=== PATIENT | female | born 1950 | race Caucasian/White ===

== ENCOUNTER 2017-01-25 16:46 | Emergency (ER) | payer MEDICARE, OTHER ==
[~2017-01-25] VITALS: Ht 172.7 cm; Wt 104.8 kg
[2017-01-25] MEDS ORDERED: REMERON45 M1 PO (16:58)
[2017-01-25] MEDS ORDERED: CYMBALTA60 MG PO (16:58)
[2017-01-25] MEDS ORDERED: RITALIN5 MG PO (17:00)
[2017-01-25] MEDS ORDERED: HYDROCHLOROTH12.5 M1 PO (19:14)
--- NOTE | 2017-01-26 20:38 | EKG ---
[facility] [address] [facility] [place] [address] Signed Normal sinus rhythm Normal ECG No previous ECGs available Confirmed by ANDERSON SANCHEZ MD ([id number]) on 01/26/2017 8:38:39 PM Electronically Signed By: ANDERSON SANCHEZ MD 01/26/17 2038 PATIENT NAME: ARIANA LAWLER MARCELL Electrocardiogram DATE OF : 54 PHYSICIAN: ANDERSON SANCHEZ MD REPORT #: [id number] REPORT IS CONFIDENTIAL AND NOT TO BE RELEASED WITHOUT AUTHORIZATION
== END 2017-01-25 19:25 | disposition home or self-care (01) ==
LOC: ED 16:46
DX: I10 Essential (primary) hypertension (principal); F84.0 Autistic disorder; Z79.01 Long term (current) use of anticoagulants; Z79.899 Other long term (current) drug therapy; Z98.890 Other specified postprocedural states
CPT/HCPCS: 80053; 81001; 82550; 82553; 83874; 84484; 85025; 85610; 85730; 93005; 93010; 96374; 99284

== ENCOUNTER 2018-05-07 18:20 | Emergency (ER) | payer MEDICARE, OTHER ==
[~2018-05-07] VITALS: Ht 172.7 cm; Wt 104.8 kg
[~2018-05-07 18:20] MED LIST: CYMBALTA60 MG PO; HYDROCHLOROTH12.5 M1 PO; REMERON45 M1 PO; RITALIN5 MG PO
--- OUTSIDE RECORDS SUMMARY | 2018-05-07 18:24 | XMS ---
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 Mert has no Care Guidelines for this patient. Rk VISIT COUNT (12 MO.) 1 ANKUSH Khan TOTAL 1 NOTE: Visits indicate total known visits. ED/UCC VISIT TRACKING (12 MO.) 05/07/2018 18:20 ANKUSH Campbell [place] TYPE: Emergency COMPLAINT: - DIZZY,HIGH BP INPATIENT VISIT TRACKING (12 MO.) No inpatient visits to display in this time frame [email or web address]
[2018-05-07] MEDS ORDERED: LISINOPRIL10 MG PO (20:02)
--- NOTE | 2018-05-08 20:14 | EKG ---
[facility] [address] [facility] [place], [place] [address] Signed Normal sinus rhythm Possible Left atrial enlargement Borderline ECG When compared with ECG of 25-JAN-2017 17:15, No significant change was found Confirmed by DEDRICK OLIVEIRA DO ([id number]) on 05/08/2018 8:14:14 PM Electronically Signed By: DEDRICK OLIVEIRA DO 05/08/182013 PATIENT NAME: ARIANA LAWLER MARCELL Electrocardiogram DATE OF : 54 PHYSICIAN: DEDRICK OLIVEIRA DO REPORT #: [id number] REPORT IS CONFIDENTIAL AND NOT TO BE RELEASED WITHOUT AUTHORIZATION
== END 2018-05-07 20:10 | disposition home or self-care (01) ==
LOC: ED 18:20
DX: I10 Essential (primary) hypertension (principal); F17.200 Nicotine dependence, unspecified, uncomplicated
CPT/HCPCS: 71046; 80053; 83735; 84484; 85025; 85379; 85610; 85730; 93005; 93010; 96374; 99284; J2405

== ENCOUNTER 2019-08-23 05:30 | Observation (INO) | payer MEDICARE, OTHER ==
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
[~2019-08-23] VITALS: Ht 172.7 cm; Wt 109.3 kg
[~2019-08-23 05:30] MED LIST changes: +HYDROCHLOROTHIA25 MG PO; +LIPITOR20 MG PO; +LISINOPRIL10 MG PO; +LISINOPRIL40 MG PO; +MOBIC15 MG PO; +NORVASC5 MG PO
--- NOTE | 2019-08-23 10:52 | NUR ---
08/23/19 1052 Domenica Ngo 1009 PT ARRIVED IN PACU WIDE AWAKE WITH NO C/O'S. MOVING FEET. BUNNY BOLSTER IN PLACE. 1015 SIPPING ON ICE WATER. 1025 XRAY OF L HIP DONE. SITTING UP IN BED SIPPING ON COFFEE. ICE TO L HIP. 1040 GLASSES RETURNED TO PT. 1045 TO ROOM 122. BED PLUGGED IN AND CALL LITE IN PLACE. PT TEXTING ON CELL PHONE. NO C/O'S.
--- NOTE | 2019-08-23 10:54 | NUR ---
PT TO UNIT. PT AWAKE, ALERT AND ORIENTED X4. PT DENIES PAIN AT THIS TIME. LEFT HIP DRESSING IS CDI; ICE OVER INCISION. CMS INTACT. ABDUCTOR PILLOW INTACT. SCD'S INTACT. PT REPORTS FULL SENSATION TO YULI LOWER EXT. VS STABLE AT THIS TIME. PT DENIES NEED TO VOID. PERSONAL SUPPLIES AND CALL LIGHT WITHIN REACH. NO NEEDS AT THIS TIME. CALL LIGHT WITHIN REACH.
[2019-08-23] MEDS ORDERED: DULOXETINE HCL30 MG PO (11:56)
--- NOTE | 2019-08-23 12:04 | NUR ---
PT SITTING UP IN BED, A&OX4. PT ON RA, RESP EVEN AND NON LABORED. LEFT HIP DRESSING IS CDI. PT AMBULATED TO THE BR WITH STANDBY ASSIST WITH WALKER; TOLERATED WELL. VS STABLE AT THIS TIME. PT EATING LUNCH. PT REPORTS PAIN LEVEL OF 0/10 TO LEFT HIP. PT WANTS TO GO HOME SOON. BED ALARM INACT. SPINAL RESOLVED. PERSONAL SUPPLIES AND CALL LIGHT WITHIN REACH. NO NEEDS AT THIS TIME.
--- NOTE | 2019-08-23 12:04 | NUR ---
MED REC COMPLETE
[2019-08-23] MEDS ORDERED: DILAUDID4 MG PO ×3 (12:22→14:11)
[2019-08-23] MEDS ORDERED: NORCO 10-325 T1 EACH PO ×3 (12:23→14:11)
[2019-08-23] MEDS ORDERED: ONDANSETRON ODT4 MG SL (12:24)
[2019-08-23] MEDS ORDERED: XARELTO10 MG PO ×2 (12:24→13:01)
[2019-08-23] MEDS ORDERED: TYLENOL EXTRA500 MG PO (12:28)
--- NOTE | 2019-08-23 13:04 | NUR ---
PT SITTING UP, A&OX4. PT REPORTS 0/10 PAIN IN LEFT HIP. INCISION TO LEFT HIP CDI, ICE OVER INCISION. PT REPORTS FULL SENSATION TO LLE. CMS INTACT TO BILAT LOWER EXT. PERSONAL SUPPLIES AND CALL LIGHT WITHIN REACH. VS STABLE. NO NEEDS AT THIS TIME.
--- NOTE | 2019-08-23 13:59 | NUR ---
SPOKE WITH DR KING REGARDING DISCHARGE. HE SAID HE WAS GOOD WITH HER GOING. SPOKE WITH PT REGARDING SAFE DISCHARGE PLANS AND SHE STATED THAT HER HOME IS SET UP FOR HANDICAP ACCESSIBLE AND SHE HAS 24 HOUR CAREGIVERS.
--- NOTE | 2019-08-23 14:06 | NUR ---
PT SITTING UP IN BED, A&OX4. PT DENIES PAIN. PT HAS NO NEEDS AT THIS TIME. PT REQUESTING TO GO HOME. PERSONAL SUPPLIES AND CALL LIGHT WITHIN REACH. NO NEEDS AT THIS TIME.
--- NOTE | 2019-08-25 07:21 | OR ---
[facility] [address] [place], [place] [address] Signed DATE OF OPERATION: 08/23/2019 SURGEON: Palomo King MD PREOPERATIVE DIAGNOSIS: End-stage osteoarthritis, left hip. POSTOPERATIVE DIAGNOSIS: End-stage osteoarthritis, left hip. PROCEDURE: Left total hip arthroplasty. IMPLANTS: [place] cup, size 7 Beauregard stem, standard offset with a +5 36 mm Louin-chrome head. ANESTHESIA: Spinal with some sedation. SPECIMENS AND COMPLICATIONS: There were no specimens or complications. BLOOD LOSS: About 650 mL. WHAT WAS DONE: The patient was taken to the operating room. After anesthesia was induced and airway secured, the patient was positioned, prepped and draped in a routine sterile fashion. All the bony prominences were padded and a time-out was taken. A slightly curvilinear lateral incision was made through skin and subcutaneous tissue. Hemostasis was achieved with electrocautery. The fascia was incised in line with the skin incision and the tensor was bluntly split with the tips of the gloved fingers. We then released the anterior 3rd of the gluteus and retracted it medially using a Charnley retractor. We then opened up the anterior capsule and did anterior and superior capsulectomy. We were then able to dislocate the hip anteriorly. The femoral head and neck resection were accomplished with an oscillating saw using the Beauregard guide. We removed the head and neck fragment. We then removed what was left of the labrum around the hip, so we could identify the bony acetabulum. We then sequentially reamed the acetabulum until we hit with 53 mm reamer where we got a very good fit and fill. We put in a trial liner. We are happy again with the alignment, position, and stability, so we impacted a 54 mm Electronically Signed By: PALOMO KING MD 08/25/19 0721 PATIENT NAME: ARIANA LAWLER OPERATIVE REPORT DATE OF : 54 REPORT #: [id number] PHYSICIAN: PALOMO KING MD PCP: FIDELINA PHELPS MD REPORT IS CONFIDENTIAL AND NOT TO BE RELEASED WITHOUT AUTHORIZATION [facility] [address] [place], [place] [address] Signed pinnacle cup. It was secured with two additional screws, even though the press-fit was quite snug. We irrigated it copiously and then impacted neutral 36 liner. We then rotated the proximal femur up into the wound and prepared it using the standard box chisel, canal finder, lateralizer, reamers, and then broaches. Although, we were just about to able to get a size 8 reamer down, the size 8 broach was clearly too large. We therefore impacted the size 7 broach right to the level of the resection. We put on a +1.5 36 ball and relocated the hip with good alignment, good position, and good stability. A single AP x-ray was taken, which showed good alignment and good position, but the lesser trochanter was little higher than it was before resection. We therefore dislocated the hip, removed the trials, and impacted the real size 7 stem. We then placed +5 ball on the head and again, we were happy with the alignment, position, and stability. The wound was copiously irrigated and closed in a standard fashion. Sterile dressings were applied and the patient was awakened in recovery room, and arrived in stable condition. Counts were correct and antibiotic protocols were followed. Palomo King MD WFB/MODL /[id number] Copies: ~ Electronically Signed By: PALOMO KING MD 08/25/19 0721 PATIENT NAME: ARIANA LAWLER MARCELL OPERATIVE REPORT DATE OF : 54 REPORT #: [id number] PHYSICIAN: PALOMO KING MD PCP: FIDELINA PHELPS MD REPORT IS CONFIDENTIAL AND NOT TO BE RELEASED WITHOUT AUTHORIZATION
== END 2019-08-23 14:35 | disposition home or self-care (01) ==
LOC: MS 05:30 → DS 05:30 → DSVR 05:30 → DS 07:36 → MS 07:37 → EDSTATUS 07:45 → MS 10:40 → DSVR 10:40 → MS 14:35
PROVIDERS: ADMIT Orthopaedic Surgery
PROC: 0SRB0JZ Replacement of Left Hip Joint with Synthetic Substitute, Open Approach (ICD-10-PCS; principal; 2019-08-23 07:45)
DX: M16.0 Bilateral primary osteoarthritis of hip (principal); I10 Essential (primary) hypertension; E78.5 Hyperlipidemia, unspecified; F32.1 Major depressive disorder, single episode, moderate; R82.71 Bacteriuria; R06.83 Snoring; Z79.899 Other long term (current) drug therapy; Z79.1 Long term (current) use of non-steroidal anti-inflammatories (NSAID)
CPT/HCPCS: 01214; 73501; 73502; 97110; 97161; C1776; G0378; J0690; J1100; J1885; J2001; J2250; J2274; J2300; J2704; J3475; J7121

== ENCOUNTER 2019-08-29 16:31 | Emergency (ER) | payer MEDICARE, OTHER ==
[~2019-08-29] VITALS: Ht 172.7 cm; Wt 109.3 kg
[~2019-08-29 16:31] MED LIST changes: +DILAUDID4 MG PO; +DULOXETINE HCL30 MG PO; +NORCO 10-325 T1 EACH PO; +ONDANSETRON ODT4 MG SL; +TYLENOL EXTRA500 MG PO; +XARELTO10 MG PO
--- OUTSIDE RECORDS SUMMARY | 2019-08-29 16:36 | XMS ---
PreManage Notification: ARIANA LAWLER Security Certified Pharmacy Tech Events No recent Security Events currently on file CRITERIA MET - Group Notification - [facility] - Has Care Guidelines - PDMP CARE PROVIDERS There are no care providers on record at this time. Mert has no Care Guidelines for this patient. Care History Medical/Surgical 05/10/2018 [facility] - [facility] RECEIVED-ED PHYSICIAN CONSULT- HELP PATIENT WITH FINDING A PCP. - [facility] CALLED PATIENT AND LEFT A VOICEMAIL. - [facility] SENT PATIENT NO PCP LETTER. E.DMustapha VISIT COUNT (12 MO.) 1 [facility] TOTAL 1 NOTE: Visits indicate total known visits. ED/UCC VISIT TRACKING (12 MO.) 08/29/2019 16:32 ANKUSH Campbell [place] TYPE: Emergency COMPLAINT: - SYNCOPE EPISODE INPATIENT VISIT TRACKING (12 MO.) 08/23/2019 07:37 ANKUSH Campbell [place] TYPE: Observation COMPLAINT: - LEFT TOTAL HIP REPLACEMENT DIAGNOSES: - Other prison (current) drug therapy - Bilateral primary osteoarthritis of hip - Snoring - Major depressive disorder, single episode, moderate - half-way (current) use of non-steroidal non-inflam (NSAID) - Unilateral primary osteoarthritis, left hip - Unilateral primary osteoarthritis, left hip - Bacteriuria - Essential (primary) hypertension - Hyperlipidemia, unspecified [email or web address]
[2019-08-29] MEDS ORDERED: CEFUROXIME500 MG PO (18:57)
== END 2019-08-29 20:18 | disposition home or self-care (01) ==
LOC: ED 16:31
DX: K59.00 Constipation, unspecified (principal); N39.0 Urinary tract infection, site not specified; I10 Essential (primary) hypertension; Z87.891 Personal history of nicotine dependence; Z88.5 Allergy status to narcotic agent; Z79.899 Other long term (current) drug therapy
CPT/HCPCS: 80053; 81001; 83605; 85025; 96361; 96374; 99283-25; J2405; J7030

== ENCOUNTER 2022-04-14 12:46 | Day surgery (SDC) | payer MEDICARE ==
[~2022-04-14] VITALS: Ht 172.7 cm; Wt 109.1 kg
[~2022-04-14 12:46] MED LIST changes: +CEFUROXIME500 MG PO
[2022-04-14] MEDS ORDERED: ADDERALL 15 MG15 MG PO (13:10)
--- NOTE | 2022-04-14 15:45 | NUR ---
04/14/22 1545 Domenica Ngo 1534 PT ARRIVED IN PACU AWAKE WITH NO C/O'S. ABD SOFT. ASKING FOR COFFEE. 1544 SITTING UP IN BED SIPPING ON COFFEE.
--- NOTE | 2022-04-15 19:03 | OR ---
[facility] [address] [place], [place] [address] Signed DATE OF OPERATION: 04/14/2022 SURGEON: Digna Pollock MD PREOPERATIVE DIAGNOSIS: Positive Cologuard test, December 2021. POSTOPERATIVE DIAGNOSES: 1. Two small polyps rectosigmoid and rectum (excised). 2. Extensive diverticulosis, left and sigmoid colon. PROCEDURE: Total colonoscopy to cecum with cold morcellation polypectomy x2 and blind biopsy behind the ileocecal valve x1. ANESTHESIA: Intravenous sedation fentanyl 150 mcg and Versed 10 mg. INDICATION: 72-year-old white woman is a patient of Dr. Shelton and underwent Cologuard screening test in December 2021 which was positive. She has had no associated blood per rectum, diarrhea, or constipation and has no prior evaluation by colonoscopy. She has no family history of colon cancer. She was admitted at this time to undergo colonoscopy on the basis of her positive Cologuard test. She understands the risks of bleeding, infection, perforation. FINDINGS: The prep was excellent. Complete colonoscopy was undertaken. Full intubation of the cecum was not afforded, however, good visualization of the ileocecal valve and cecum was noted. Biopsies were taken behind the ileocecal valve as the cecum itself could not be fully intubated though mucosa was withdrawn and appeared normal. There were numerous diverticula of the sigmoid and left colon. There were two small polyps, one in the rectosigmoid, the other in the rectum, there were no other findings of concern. PROCEDURE IN DETAIL: The patient was brought to the endoscopy suite and placed in lateral decubitus position given intravenous sedation to the point of slurred speech and nystagmus. Digital rectal examination was normal. An Olympus video colonoscope was passed in the rectum and manipulated throughout the Electronically Signed By: DIGNA POLLOCK MD 04/15/22 1903 PATIENT NAME: ARIANA LAWLER OPERATIVE REPORT DATE OF : 54 REPORT #: [id number] PHYSICIAN: DIGNA POLLOCK MD PCP: RENETTA SHELTON MD REPORT IS CONFIDENTIAL AND NOT TO BE RELEASED WITHOUT AUTHORIZATION [facility] [address] [place], [place] [address] Signed colon noting numerous diverticula of the sigmoid and left colon. Scope was ultimately passed beyond hepatic flexure. Abdominal wall stabilization was required to more fully advance the scope. Ultimately, the cecum was identified as was the ileocecal valve. Various maneuvers were undertaken including abdominal wall stabilization and so forth to fully intubate the cecum, but was not forthcoming due to patient discomfort and other issues. On that basis, a biopsy forceps was used to elevate the mucosa behind the ileocecal valve and elsewhere. Ultimately, biopsy in the area as well, though there was no evidence of actual polyp. The scope was then withdrawn and examination throughout showed no sign of abnormality into the rectosigmoid where small sessile polyp was noted, this was excised with cold morcellation technique. Most likely this polyp was hyperplastic. Further withdrawal allowed for identification of an obviously adenomatous polyp of the rectum, which was excised with cold morcellation technique as well. Complete excision was undertaken. Retroflexed view showed anal papilla hypertrophy but no other findings of concern. Scope was removed. The patient was taken to the recovery room in good condition. CONCLUDING DIAGNOSIS: Polyps x2. PLAN: Recommend repeat colonoscopy in 5-7 years, sooner if clinically indicated. Recommend also high-fiber diet based on diverticulosis. She will return to the ongoing care of Dr. Shelton. MD JOSE Galaviz/MICHAELL /[id number] cc: Renetta Shelton MD Copies: ~ Electronically Signed By: DIGNA POLLOCK MD 04/15/22 1903 PATIENT NAME: ARIANA LAWLER MARCELL OPERATIVE REPORT DATE OF : 54 REPORT #: [id number] PHYSICIAN: DIGNA POLLOCK MD PCP: RENETTA SHELTON MD REPORT IS CONFIDENTIAL AND NOT TO BE RELEASED WITHOUT AUTHORIZATION
--- NOTE | 2022-04-16 16:22 | PATH ---
[facility] [address] [place], [place] [address] Signed SPECIMEN(S): A CECUM BIOPSY SPECIMEN(S): B RECTOSIGMOID POLYP SPECIMEN(S): C RECTAL POLYP SPECIMEN SOURCE: A. CECUM BIOPSY B. RECTOSIGMOID POLYP C. RECTAL POLYP CLINICAL HISTORY: Initial screening colonoscopy, no family history of colon cancer. + Cologuard 12/2021. Post: Diverticulosis and polyps x 2. FINAL PATHOLOGIC DIAGNOSIS: A. Cecum, biopsies: - Benign colon mucosa. - Negative for acute inflammation, granulomata, and microscopic colitis. B. Rectosigmoid polyp, polypectomy: - Tubular adenoma. - Negative for high-grade dysplasia and malignancy. C. Rectal polyp, polypectomy: - Tubular adenoma. - Negative for high-grade dysplasia and malignancy. DDF:mfr:C2NR MICROSCOPIC EXAMINATION: Histologic sections of all submitted blocks are examined by light microscopy. These findings, together with the gross examination, support the pathologic diagnosis. GROSS DESCRIPTION: Three specimens are received in three containers, labeled "BT ." A. The specimen, labeled "BT #1," is received in formalin and consists of one avitia soft tissue fragment that measures 0.3 cm in greatest dimension. The specimen is entirely submitted in cassette (A1). B. The specimen, labeled "BT #2," is received in formalin and consists of three vaitia soft tissue fragments that measure 0.3 cm in greatest dimension. The specimen is entirely submitted in cassette (B1). C. The specimen, labeled "BT #3," is received in formalin and consists of one PATIENT NAME: ARIANA LAWLER PATHOLOGY DATE OF : 54 REPORT #: [id number] PHYSICIAN: KHRIS RESTREPO PCP: FIDELINA PHELPS MD REPORT IS CONFIDENTIAL AND NOT TO BE RELEASED WITHOUT AUTHORIZATION [facility] [address] [place], [place] [address] Signed avitia soft tissue fragment that measures 0.2 cm in greatest dimension. The specimen is entirely submitted in cassette (C1). KV (under the direct supervision of a pathologist) The Gross Description was prepared using a voice recognition system. The report was reviewed for accuracy; however, sound-alike word errors, addition and/or deletions may occur. If there is any question about this report, please contact Client Services. PERFORMING LABORATORY: The technical component was performed by [facility], [address] [place] [address] (CLIA# [id number]). Professional interpretation was performed by [facility], [facility], [address] [place] [id number] (CLIA#: [id number]) Diagnostician: Ken Chiu DO Pathologist Electronically Signed 04/16/2022 Copies: ~ PATIENT NAME: ARIANA LAWLER PATHOLOGY DATE OF : 54 REPORT #: [id number] PHYSICIAN: [facility] PCP: FIDELINA PHELPS MD REPORT IS CONFIDENTIAL AND NOT TO BE RELEASED WITHOUT AUTHORIZATION
== END 2022-04-14 16:05 | disposition home or self-care (01) ==
LOC: OPS 12:46 → DS 12:51 → OPS 14:00
PROVIDERS: ATTEND Surgery
PROC: 0DBP8ZZ Excision of Rectum, Via Natural or Artificial Opening Endoscopic (ICD-10-PCS; principal; 2022-04-14 14:00)
DX: D12.7 Benign neoplasm of rectosigmoid junction (principal); D12.8 Benign neoplasm of rectum; K57.30 Diverticulosis of large intestine without perforation or abscess without bleeding; I10 Essential (primary) hypertension; Z96.641 Presence of right artificial hip joint
CPT/HCPCS: 88305; 99153; G0500; J0690; J2250; J3010; J7121

== ENCOUNTER 2022-05-05 20:53 | Emergency (ER) | payer MEDICARE ==
[~2022-05-05] VITALS: Ht 172.7 cm; Wt 108.9 kg
[~2022-05-05 20:53] MED LIST changes: +ADDERALL 15 MG15 MG PO
== END 2022-05-05 23:15 | disposition home or self-care (01) ==
LOC: ED 20:53
DX: S80.11XA Contusion of right lower leg, initial encounter (principal); K59.00 Constipation, unspecified; I10 Essential (primary) hypertension; W19.XXXA Unspecified fall, initial encounter; Z87.891 Personal history of nicotine dependence; Z88.5 Allergy status to narcotic agent; Z79.899 Other long term (current) drug therapy
CPT/HCPCS: 99283

== ENCOUNTER 2024-09-23 12:46 | Inpatient (IN) | payer MEDICARE ==
[~2024-09-23] VITALS: Ht 172.7 cm; Wt 105.2 kg
[2024-09-23 13:12] LABS: BASOPHILS 0.3 % (0-2); EOSINOPHILS 0.5 % (0-6); HEMATOCRIT 37.6 % (35.0-50.0); HEMOGLOBIN 13.1 g/dL (12.0-18.0); LYMPHOCYTES 3.1 % (24-44); MCH 30.3 (27-36); MCHC 34.8 g/dl (30-36); MCV 87.1 fl (81-99); MONOCYTES 5.8 % (0-12); NEUTROPHILS 90.3 % (39-80); PLATELET COUNT 223 K/uL (140-440); RBC 4.31 M/ul (4.3-5.7); RDW 13.6 (10.5-15.0)
[2024-09-23] MEDS ORDERED: ACETAMINOPHEN 500 MG TAB PO ONE (13:15)
[2024-09-23] MEDS ORDERED: CEFTRIAXONE SODIUM 2 GM VIAL ONE (13:17)
[2024-09-23 13:30] LABS: LACTIC ACID, BLOOD 1.2 mmol/L (0.4-2.0)
[2024-09-23] MEDS ORDERED: CEFTRIAXONE SODIUM 2 GM in SODIUM CHLORIDE 0.9% 100 ML IV ONE (13:30)
[2024-09-23] MEDS ORDERED: AZITHROMYCIN 500 MG in DEXTROSE 5% 250 ML IV ONE (13:30)
[2024-09-23 13:37] LABS: ALBUMIN 3.7 g/dL (3.4-5.0); ALBUMIN/GLOBULIN RATIO 1.23 (1.1-2.4); ANION GAP 14.3 (7-21); BILIRUBIN, TOTAL 0.5 mg/dL (0.2-1.0); BUN/CREATININE RATIO 12.67 (6.0-28.6); CALCIUM 9.4 mg/dL (8.5-10.1); CREATININE, SERUM 0.71 mg/dL (0.55-1.02); POTASSIUM 3.3 mmol/L (3.5-5.1); PROTEIN, TOTAL 6.7 g/dL (6.4-8.2)
[2024-09-23 13:39] LABS: BILIRUBIN, URINE NEGATIVE (negative); BLOOD/HGB, URINE NEGATIVE (Negative); KETONE, URINE NEGATIVE (Negative); LEUK ESTERASE, URINE NEGATIVE (negative); NITRITE, URINE POSITIVE (negative); PH, URINE 7.5 (5-7)
[2024-09-23 13:42] LABS: INFLUENZA B NAA NEGATIVE (NEGATIVE); RESPIRATORY SYNCYTIAL VIR NAA NEGATIVE (NEGATIVE)
[2024-09-23 13:52] LABS: BACTERIA, URINE 3+ /hpf (negative); CASTS, URINE NONE SEEN \\lpf; COLLECTION TYPE, URINE CATH; CRYSTALS, URINE NONE SEEN (0-1+); EPITHELIAL CELLS, URINE OCCASIONAL /lpf (0-1+); RED BLOOD CELLS, URINE 0-1 /hpf (0-5); REFLEX CULTURE, URINE Yes (No)
[2024-09-23] MEDS ORDERED: SODIUM CHLORIDE 0.9% 1,000 ML IV ONE ×2 (14:00→15:15)
[2024-09-23] MEDS ORDERED: ALBUTEROL/IPRATROPIUM 3 ML NEB ONE (14:06)
[2024-09-23] MEDS ORDERED: ALBUTEROL/IPRATROPIUM 3 ML NEB INH ONE (14:15)
[2024-09-23] MEDS ORDERED: KETOROLAC TROMETHAMINE 15 MG/ML VIAL IV PRN (14:45)
--- NOTE | 2024-09-23 15:00 | NUR ---
PT ARRIVES TO FLOOR IN STRETCHER WITH NIA BEARD. PT TRANSFERRED VIA SLIDE SHEET TO HOSPITAL BED. VS AND WT OBTAINED. THIS RN REMAINS IN ROOM TO COMPLETE ADMISSION.
[2024-09-23 15:13] VITALS: BP 126/48
[2024-09-23] MEDS ORDERED: ALBUTEROL SULFATE 0.083% 3 ML VIAL INH PRN (15:15)
[2024-09-23] MEDS ORDERED: POTASSIUM CHLORIDE 10 MEQ TABCR PO ONE (15:15)
[2024-09-23] MEDS ORDERED: ACETAMINOPHEN 325 MG TAB PO PRN (15:15)
[2024-09-23] MEDS ORDERED: ondansetron HCL 4 MG/2 ML VIAL IV PRN (15:15)
[2024-09-23] MEDS ORDERED: DULOXETINE HCL30 MG PO (15:19)
[2024-09-23] MEDS ORDERED: LION'S MANE PO (15:30)
[2024-09-23] MEDS ORDERED: TURMERIC500 M2 PO (15:31)
[2024-09-23] MEDS ORDERED: MAGOX 400400 MG PO (15:31)
[2024-09-23] MEDS ORDERED: VITAMIN D325 MCG PO (15:31)
[2024-09-23] MEDS ORDERED: IRON325 M1 PO (15:31)
[2024-09-23] MEDS ORDERED: VITAMIN C250 M1 PO (15:32)
[2024-09-23] MEDS ORDERED: DICLOFENAC SODI75 MG PO (15:33)
[2024-09-23] MEDS ORDERED: METHOCARBAMOL750 MG PO (15:33)
--- NOTE | 2024-09-23 15:33 | NUR ---
MED REC COMPLETE
--- NOTE | 2024-09-23 15:46 | NUR ---
UR CLINICAL REVIEW: 2MN VERSALUS, MEETS INPT FOR PNEUMONIA, UTI, HYPONATREMIA CXR POSITIVE FOR PNEUMONIA, HYPOXIC REQUIRING OXYGEN NOT BASELINE, IV ANTIBIOTICS, TREND LABS MEDICARE INPT 09/23/24 @ 3578 ORDER MATCHES REG NO AUTH REQUIRED PER MEDICARE RULES PLAN TO DC TO HOME WHEN MEDICALLY STABLE.
[2024-09-23] MEDS ORDERED: ALBUTEROL/IPRATROPIUM 3 ML NEB INH SCH (16:00)
--- NOTE | 2024-09-23 16:09 | NUR ---
ADMISSION COMPLETE. PT RESTING IN BED WITH HOB ELEVATED, 5LNC IN PLACE, CPOX AT BEDISDE. PTs SPO2 SUSTAINS>90%. PT INITIALLY COMPLAINING OF 10/10 PAIN TO HER R UPPER/MID BACK. PT PREVIOUSLY RECEIVED PRN PAIN MEDICATION IN ED. HEAT PACKS AND REPOSITIONED SUPPLIED. PT REPORTS IMPROVEMENT, HER BACK PAIN HAS DECREASED TO 3/10. LUNG SOUNDS ARE COARSE CRACKLES THROUGHOUT WITH EXPIRATORY WHEEZE THROUGHOUT. TACHYPNIC, RR OF 28, PT REPORTS SOB. PT CAN SPEAK IN COMPLETE SENTENCES ONLY IF THEY ARE SHORT. IV TO L AC AND L WRIST, BOTH FLUSH WNL. FLUID BOLUS INFUSING ORDERED TO L AC. PT REPORTS THAT SHE HAS NOT HAD A BOWEL MOVEMENT IN A FEW DAYS AND SHE IS DUE. BOWEL TONES ARE ACTIVE IN ALL FOUR QUADRANTS, NON-TENDER TO PALPATION. CHRONIC CONSTIPATION D/T IRON SUPPLEMENTATION. PT TOOK MIRALAX BEFORE HOSPITAL THIS MORNING. PT REPORTS SHE HAS "A STICKY VALVE AND MURMUR" DIAGNOSED BY HER PCP LAST YEAR, SHE CANNOT CLARIFY FURTHER. BRIEF WITH PUREWICK IN PLACE, PT REPORTS DRIBBLING AT HOME AND SHE GENERALLY WEARS A PAD "JUST IN CASE I SNEEZE". PTs PURSE IS IN LOCKBOX, PTs DAUGHTER LEAVES AT THIS TIME. RESPIRATORY THERAPY ARRIVES TO WORK ON PT. RT REMAINS WITH PT AT THIS TIME.
--- NOTE | 2024-09-23 16:21 | NUR ---
CAROLYN FROM RESPIRATORY THERAPY UPDATES THIS RN. PT IS NOW ON 6LNC TO MAINTAIN SPO2 OF 90%.
--- NOTE | 2024-09-23 16:45 | NUR ---
MD GIVES VERBAL ORDER FOR EKG, TROPONIN, MEDICATION, AND STAT CT TO RULE OUT PE. ORDERS PLACED.
--- NOTE | 2024-09-23 16:51 | NUR ---
PT REPORTS FEELING INCREASED SOB, CPOX WITH SPO2 OF 88%. OXYMASK PLACED AT 6L, PT CONTINUES TO REPORT INCREASED SOB. PT PLACED BACK ON NC AT 6L. PT HAS BECOME MORE PALE, HER HOB IS ELEVATED HIGH IT GOES WITH HER HEAD PRESSED AGAINST HER PILLOW AND STARING AT THE CEILING. PT SPEAKING IN MONOSYLLABLES TO CATCH BREATH. RESPIRATORY THERAPY NOTIFIED OF PTs CHANGE IN CONDITION. CAROLYN, FROM RT STATES HE WILL COME. NOTIFIED OF PTs CHANGE IN CONDITION.
[2024-09-23] MEDS ORDERED: KETOROLAC TROMETHAMINE 15 MG/ML VIAL IV ONE (17:00)
--- NOTE | 2024-09-23 17:06 | NUR ---
CAROLYN FROM RESPIRATORY THERAPY ARRIVES TO RE-ASSESS PT. CAROLYN EXPRESSES INCREASED CONCERN. EKG PERFORMED. LAB PRESENT. IMAGING ARRIVES, PT ESCORTED IN HOSPITAL BED TO CT ACCOMPANIED BY TWO IMAGING PERSONNEL AND RT CAROLYN. PT IS OFF THE FLOOR AT THIS TIME.
[2024-09-23 17:14] LABS: PH, VENOUS 7.42 (7.31-7.41)
--- NOTE | 2024-09-23 17:17 | NUR ---
UPDATED ON PT LAB RESULTS AND TELE PLACEMENT. HAS NO NEW ORDERS AT THIS TIME, WOULD LIKE TO BE NOTIFIED WITH PT RETURNS FROM IMAGING.
--- NOTE | 2024-09-23 17:30 | NUR ---
PT BACK TO FLOOR AFTER IMAGING. PT ARRIVES TO FLOOR FLAT ON HER BACK ARMS RAISED ABOVE HER HEAD. SHE REPORTS THIS POSITION ALLOWS HER TO GET A FULL BREATH AND SHE IS FEELING BETTER. CPOX READS 94% ON 6LNC. PT IS SPEAKING IN FULL SENTENCES. CAROLYN FROM RT REMAINS AT BEDSIDE.
--- NOTE | 2024-09-23 17:53 | NUR ---
MD TO FLOOR TO ASSESS PT. PT LYING ON L SIDE IN BED, 6LNC IN PLACE, CPOX AT BEDSIDE SUSTAINS 89%. PT CONVERSING WITH MD AND REPORTING THAT SHE IS FEELING IMPROVED. PT REQUESTING PAIN MEDICATION FOR HER BACK. CALL LIGHT IN REACH.
[2024-09-23] MEDS ORDERED: MIRTAZAPINE 15 MG TAB PO SCH ×2 (18:00→21:00)
--- NOTE | 2024-09-23 18:12 | NUR ---
MEDICATION ADMINISTERED, SEE MAR. PT REMAINS ABLE TO SPEAK WITH THIS RN IN COMPLETE SENTENCES. CPOX IN PLACE. 6LNC IN PLACE. REQUESTING ORANGE JUICE - PROVIDED. REPORTS SHE IS VERY TIRED. NO OTHER REQUESTS, CALL LIGHT IN REACH.
[2024-09-23 18:13] VITALS: BP 106/55
[2024-09-23 18:27] VITALS: BP 106/55
--- NOTE | 2024-09-23 18:41 | NUR ---
PT RESTING IN BED FLAT ON BACK WITH ARMS ABOVE HEAD. CPOX AT BEDSIDE SUSTAINS SPO2 OF 96% ON 6LNC. PT HAS EYES CLOSED, RR EVEN BUT MILDLY LABORED. NO REQUESTS, CALL LIGHT IN REACH.
--- NOTE | 2024-09-23 19:10 | NUR ---
REPORT RECEIVED FROM ISA KRAMER. pt RESTING IN THE BED. BOARD UPDATED. pt DENIES ANY NEEDS AT THIS TIME. CALL LIGHT WITHIN REACH.
[2024-09-23] MEDS ORDERED: BUDESONIDE 0.5 MG/2 ML VIAL INH SCH (20:00)
--- NOTE | 2024-09-23 20:00 | NUR ---
PHONE CALL PLACED TO ABOUT pt ELEVATED TROP. MD ORDERED REPEAT TROP IN 4 HRS. ORDER VERIFIED WITH REPEAT BACK METHOD.
[2024-09-23 20:15] VITALS: BP 122/57
[2024-09-23 20:21] VITALS: BP 122/57
--- NOTE | 2024-09-23 20:22 | NUR ---
PT AWAKE, TURNS AND REPOSITIONS SELF IN BED., O2 53 HIGH FLOW WITH HUMIDIFER IN PLACE, DENIES SOB WITH EXERTION AT THIS TIME, CPOX AT BEDSIDE, COOPERATIVE. NO URINARY OUTPUT AT THIST ROGERIO. PT AWARE, WILL NOTIFY PRIMARY RN.
--- NOTE | 2024-09-23 20:56 | NUR ---
ARIANA IS LAYING FLAT ON A 3L SALTER HFNC OFF THE WALL. SHE REFUSED NEBULIZED RESPIRATORY MEDICATIONS.
--- NOTE | 2024-09-23 21:00 | NUR ---
ASSESSMENT AND VITAL SIGNS DONE. pt RESTING IN THE BED. CRACKLES IN THE BASES. pt DENIES ANY PAIN AT THIS TIME. CALL LIGHT WITHIN REACH. pt DENIES ANY NEEDS AT THIS TIME.
--- NOTE | 2024-09-23 23:15 | NUR ---
pt RESTING IN THE BED WITH EYES CLOSED. RR EVEN AND UNLABORED. CALL LIGHT WITHIN REACH.
[2024-09-24] VITALS (15 sets, daily range): BP systolic 117–142; BP diastolic 39–78
--- NOTE | 2024-09-24 00:05 | NUR ---
PHONE CALL PLACED TO ABOUT pt ELEVATED TROP. MD ORDERED REPEAT TROP IN 4 HRS. ORDER VERIFIED WITH REPEAT BACK METHOD.
--- NOTE | 2024-09-24 00:19 | NUR ---
pt CALLED OUT. pt STATED SHE HAD TO USE THE BR. pt UP TO THE BR, SBA. pt BACK TO BED. CPOX ON. pt ON 3LNC. pt DENIES ANY OTHER NEEDS AT THIS TIME. CALL LIGHT WITHIN REACH.
--- NOTE | 2024-09-24 00:45 | NUR ---
Pt alert and oriented, O2 3LNC in place, CPOX on at bedside, sats 95%, turns and repositions in bed. Juice, water and warm pad to back R side given on requests. Tele#[address] Sinus Tach, pt denies c/o CP or sob with exertion
--- NOTE | 2024-09-24 01:45 | NUR ---
TEMP 101, PULSE 104, RESP 24, O2 TITRATED TO 2L CPOX ON AT BEDSIDE 97% AFTER TITATION. PER MEW SCALE VITALS ARE NOW Q1, WILL NOTIFY PRIMARY RN AND TO NOTIFY MD FOR FURTHER ADVICE
--- NOTE | 2024-09-24 02:05 | NUR ---
ARIANA IS AWAKE ON A 2L NC W/HOB ELEVATED TO 46 DEGREES. SHE ABLE TO USE THE CORNET LEVEL 5 W/O DIFFICULTY OR INCREASED S/S OF RESPIRATORY DISTRESS.
--- NOTE | 2024-09-24 03:05 | NUR ---
Awake, alert and oriented to all. O2 2LNC, cpox at bedside, sats 93%. no c/o CP or SOB with exertion, turns and repositions self in bed. Tolerating fluids well, apple and cranberry juice given on requests. Temp oral 99.6. primary RN medicated, as per MEWS vitals changed to Q4hrs
--- NOTE | 2024-09-24 04:11 | NUR ---
Used call light, O2 2LNC, sats 94% at that time. Titrated up to 4LNC when up, walked to BRP, 1PA, unsteady gait, voided dark yellow urine and had liquid bm, does own care, clean pullups given. Back to bed, sob with exertion present. Back to bed, desatted to 83% on 4L, recuperated easily once in bed. O2 back to 2LNC 95% sats. Bed alrn in place, FOB elevated. was diaphoretic when up, gown and draw sheet changed. temp 98.9 orally. primary RN notified, Red area noted mid low R shoulder area. had warm pad to area earlier, denies hitting that area or injury. Denies CP, tele#[address]
--- NOTE | 2024-09-24 04:18 | NUR ---
pt RESTING IN THE BED WITH EYES CLOSED. RR EVEN AND UNLABORED. CALL LIGHT WITHIN REACH.
[2024-09-24 05:05] LABS: BASOPHILS 0.2 % (0-2); HEMATOCRIT 32.4 % (35.0-50.0); HEMOGLOBIN 11.1 g/dL (12.0-18.0); LYMPHOCYTES 6.4 % (24-44); MCH 29.8 (27-36); MCHC 34.1 g/dl (30-36); MCV 87.3 fl (81-99); MONOCYTES 4.8 % (0-12); NEUTROPHILS 88.6 % (39-80); PLATELET COUNT 191 K/uL (140-440); RBC 3.71 M/ul (4.3-5.7); RDW 13.7 (10.5-15.0)
[2024-09-24 05:26] LABS: ANION GAP 13.9 (7-21); BUN/CREATININE RATIO 13.79 (6.0-28.6); CALCIUM 8.8 mg/dL (8.5-10.1); CREATININE, SERUM 0.87 mg/dL (0.55-1.02); MAGNESIUM 1.8 mg/dL (1.8-2.4); POTASSIUM 3.9 mmol/L (3.5-5.1)
[2024-09-24] MEDS ORDERED: HEParin SOD (PORCINE) 5,000 UNIT/ML VIAL IV ONE (06:00)
[2024-09-24] MEDS ORDERED: HEPARIN SOD,PORK IN 0.45% NACL 500 ML IV SCH (06:00)
--- NOTE | 2024-09-24 06:01 | NUR ---
standing o2 weight 105.5KG, back to bed tolerated well, was on 2LNC at that time, cpox at bedside sats 95%. pt took O2 off, sats 94% on room air after 20 minutes. cooperative with vitals, no sob noted this time with exertion, repositions self in room, primary RN notified
--- NOTE | 2024-09-24 06:14 | NUR ---
transferred to CCU voa bed, on room air, procedure explained, very anxious, reassured
--- NOTE | 2024-09-24 06:15 | NUR ---
PATIENT TRANSFERED TO ROOM 129 CCU FROM 112 MED/SURG. SHE ARRIVED ALERT AND ORIENTED, SHE SAID SHE WOULD CALL HER DAUGHTER TO NOTIFY HER OF THE TRANSFER. PATIENT REQUESTED COFFEE AND ORANGE JUICE. HEPARIN BOLUS AND INFUSION STARTED. PATIENT REPORTS NO OTHER NEEDS AT THIS TIME.
[2024-09-24 06:23] LABS: INR 1.3 (0.80-1.30); PARTIAL THROMBOPLASTIN TIME 45.5 Sec (22.9-41.3); PROTIME 16.2 Sec (11.2-14.2)
[2024-09-24] MEDS ORDERED: CEFTRIAXONE SODIUM 1 GM VIAL IV ONE ×2 (08:29→08:54)
--- NOTE | 2024-09-24 08:30 | NUR ---
ASSESSMENT COMPLETE - PT RESTING IN BED AFTER NEB TX, DYSPNIC WITH TALKING IN FULL SENTENCES HOWEVER ON ROOM AIR WITH SP02 >95%, RR >20. . EXPIRATORY WHEEZE NOTED IN ALL LOBES, STRONG PRODUCTIVE COUGH THAT IS BROWN IN COLOR. PT REPORT INCREASING PAIN IN RIGHT CHEST UNDER BREAST THAT RADIATES TO HER BACK UNDER SCALPULA THAT IS WORSE WITH INSPIRATION. 1+ EDEMA NOTED IN RIGHT LOWER EXTREMITY, TRACE IN LEFT LOWER. PT VOIDED UNMEASURED URINE EARLIER IN SHIFT AND LOOSE STOOL WHICH PT STATES SHE HAS BEEN HAVING PRIOR TO ADMISSION. HEPARIN DRIP VERIFIED WITH B[facility]RBARA [facility]RAMER AND PHARMACY FOR DOSING R/T - RATE 20ML/HR FOR A MAX DOSE OF 1000U/HR. IV SITE PATENT AND WNL. CALL LIGHT IN REACH. PLAN OF CARE DISCUSSED WITH PT - ALL QUESTIONS ANSWERED.
[2024-09-24] MEDS ORDERED: CEFTRIAXONE SODIUM 1 GM in SODIUM CHLORIDE 0.9% 100 ML IV SCH (09:00)
[2024-09-24] MEDS ORDERED: AZITHROMYCIN 250 MG TAB PO SCH (09:00)
[2024-09-24] MEDS ORDERED: ENOXAPARIN SODIUM 40 MG/0.4 ML SYR SUB-Q SCH (09:00)
[2024-09-24] MEDS ORDERED: DULOXETINE HCL 60 MG CAP PO SCH (09:00)
--- NOTE | 2024-09-24 09:43 | NUR ---
PT UPDATED ON TRANSFER PROCESS, AT [facility] ACCEPTED HOWEVER NO BED SPACE CONFIRMED AT THIS TIME. PT STATES PAIN HAS RESOLVED TO 07/15. VS STABLE ON MONITOR. PT RESTING IN BED AND STATES SHE IS MOST COMFORTABLE FLAT, ABLE TO REPOSISTION SELF. HEPARIN DRIP REMAINS AT 1000 U/HR. PT UPDATING DAUGHTER HERSELF.
--- NOTE | 2024-09-24 10:49 | NUR ---
RN IN ROOM ROUNDING ON PT - RESTING IN BED SITTING UP VISITING WITH DAUGHTER. STATES PAIN IS STILL WELL CONTROLLED. VS STABLE ON MONITOR, ROOM AIR. SWAB PROVIDED FOR MOUTH. UPDATE GIVEN ON TRANSFER PROCESS, ALL QUESTIONS ANSWERED. CALL LIGHT IN REACH.
--- NOTE | 2024-09-24 11:30 | NUR ---
PT RESTING ON SIDE IN BED LAYING FLAT - OCCASIONAL DESATURATION TO 88% BUT RECOVERS QUICKLY ON ROOM AIR. RT IN ROOM TO COMPLETE TREATMENT - PRODUCTIVE COUGH AFTER TREATMENT AND CORNET USE. PT OTHERWISE DENIES COMPLAINTS.
[2024-09-24] MEDS ORDERED: PHARMACY RENAL DOSE ADJUSTMENT 1 DOSE MISC PO SCH (12:00)
[2024-09-24] MEDS ORDERED: NITROGLYCERIN 0.4 MG SUBL SL PRN (12:45)
--- NOTE | 2024-09-24 13:00 | NUR ---
DR SINGH IN TO PTS BEDSIDE, ORDER GIVEN FOR NITRO SL. 1 TAB GIVEN, IN TO REASSESS AFTER 5 MINUTES, PT IS NOT SURE IF THERE WAS ANY CHANGE IN HER CHEST PAIN ALTHOUGH SHE IS NOW COMPLAINING OF RIGHT ARM PAIN THAT JUST STARTED. 2ND TAB OF NITRO WAS GIVEN, IN AFTER 5 MINUTES TO REASSESS, PT IS STILL NOT SURE IF HER PAIN IS DIFFERENT BUT AGAIN REPORTS RIGHT ARM PAIN "I JUST GOT ACHY ALL THE SUDDEN". UPDATED.
--- NOTE | 2024-09-24 13:45 | NUR ---
REPORT GIVEN TO [facility] DEPARTMENT FOR TRANSPORT. PT RESTING SITTING UP IN BED ALERT AND ENGAGED IN REPORT. HEPARIN DRIP TITRATED TO 8.5 U/KG/HR PER HEPARIN PROTOCOL BASED ON 1300 PTT. VS STABLE ON DEPARTURE. ALL BELONGINGS SENT WITH PT. PT UPDATED FAMILY CONTACT HERSELF.
--- NOTE | 2024-09-24 14:15 | NUR ---
REPORT CALLED TO KATALINA AT [facility]
--- NOTE | 2024-09-24 19:28 | EKG ---
[facility] [address] [place] [address] Signed Sinus tachycardia Nonspecific ST abnormality Abnormal ECG When compared with ECG of 07-MAY-2018 18:29, No significant change was found Confirmed by Darrin Godinez MD ([id number]) on 09/24/2024 7:28:20 PM Electronically Signed By: DARRIN GODINEZ MD 09/24/[id number] PATIENT NAME: ARIANA LAWLER MARCELL Electrocardiogram DATE OF : 54 PHYSICIAN: DARRIN GODINEZ MD REPORT #: [id number] REPORT IS CONFIDENTIAL AND NOT TO BE RELEASED WITHOUT AUTHORIZATION
--- NOTE | 2024-09-24 19:31 | EKG ---
[facility] [address] [place] [address] Signed Normal sinus rhythm Prolonged QT Abnormal ECG When compared with ECG of 23-Sep-2024 15:48:[address] abnormality is no longer present Confirmed by Azar Godinez MD ([id number]) on 09/24/2024 7:31:31 PM Electronically Signed By: AZAR GODINEZ MD 09/24/241930 PATIENT NAME: ARIANA LAWLER Electrocardiogram DATE OF : 54 PHYSICIAN: AZAR GODINEZ MD REPORT #: [id number] REPORT IS CONFIDENTIAL AND NOT TO BE RELEASED WITHOUT AUTHORIZATION
== END 2024-09-24 13:39 | disposition home or self-care (01) | DRG 871 ==
LOC: ED 12:46 → MS 14:17 → CCU 09-24 06:14
PROVIDERS: Emergency Medicine; ADMIT Student in an Organized Health Care Education/Training Program; ATTEND Student in an Organized Health Care Education/Training Program
DX: A41.9 Sepsis, unspecified organism (principal); I21.4 Non-ST elevation (NSTEMI) myocardial infarction; J18.9 Pneumonia, unspecified organism; J96.01 Acute respiratory failure with hypoxia; E87.1 Hypo-osmolality and hyponatremia; N39.0 Urinary tract infection, site not specified; J90 Pleural effusion, not elsewhere classified; Z59.00 Homelessness unspecified; F90.9 Attention-deficit hyperactivity disorder, unspecified type; Z87.891 Personal history of nicotine dependence; E78.5 Hyperlipidemia, unspecified; F32.A Depression, unspecified; I10 Essential (primary) hypertension; D50.9 Iron deficiency anemia, unspecified; E87.6 Hypokalemia; Z88.5 Allergy status to narcotic agent; Z98.890 Other specified postprocedural states; Z79.899 Other long term (current) drug therapy
CPT/HCPCS: 36415; 51701; 71045; 71260; 80048; 80053; 81001; 82803; 83605; 83735; 83880; 84484; 85025; 85610; 85730; 87077; 87088; 87186; 87502; 93005; 93010; 94640; 94667; 94668; 94762; 99285-25; A9270; J0456; J0696; J1644; J1885; J7030; J7060; Q9967; U0002